=== PATIENT | male | born 1970 | race Caucasian/White ===

== ENCOUNTER 2017-06-15 14:25 | Inpatient (IN) | payer OTHER ==
[2017-06-14 16:06] VITALS: BMI 24.4
[~2017-06-15] VITALS: Ht 172.7 cm; Wt 72.4 kg
[2017-06-15] VITALS (16 sets, daily range): BP systolic 114–139; BP diastolic 53–86; PULSE 90–116; RESP 13–36; Ht 172.7 cm; Wt 72.4 kg
[~2017-06-15 14:25] MED LIST: DESFLURANE 15 MIN ONE; LIDOCAINE 2% (SDV) 5 ML INJ ONE
[2017-06-15] MEDS ORDERED: FENTAnyl 50 MCG/ML VIAL ONE ×2 (15:39→17:38)
[2017-06-15] MEDS ORDERED: ROPIVACAINE 0.5 % 30 ML VIAL ONE (15:39)
[2017-06-15] MEDS ORDERED: MIDAZOLAM 1 MG/ML 2 ML INJ ONE (15:39)
[2017-06-15] MEDS ORDERED: ROCURONIUM 50 MG INJ ONE ×2 (16:01→18:17)
[2017-06-15] MEDS ORDERED: PROPOFOL 20 ML ONE (16:02)
--- NOTE | 2017-06-15 16:11 | HPN ---
Date/Time of Note Date/Time of Note DATE: 06/15/17 TIME: 16:11 Interval H&P Admission Note Pt. seen H&P reviewed: No system changes GILLIAN DE LA GARZA MD Jun 15, 2017 16:11
[2017-06-15] MEDS ORDERED: morphine 10 MG INJ IV PRN (16:30)
[2017-06-15] MEDS ORDERED: OXYCODONE/ACETAMINOPHEN (5/325) TAB PO PRN (16:30)
[2017-06-15] MEDS ORDERED: CEFAZOLIN 1 GM INJ ONE (16:35)
[2017-06-15] MEDS ORDERED: ONDANSETRON 4 MG INJ ONE ×3 (16:36→20:58)
[2017-06-15] MEDS ORDERED: DEXAMETHASONE 4 MG/ML 1 ML INJ ONE (16:36)
[2017-06-15] MEDS ORDERED: LABETALOL HCL 20MG INJ ONE ×2 (17:06→17:36)
[2017-06-15] MEDS ORDERED: hydrALAzine 20 MG INJ ONE ×2 (17:35→19:07)
[2017-06-15] MEDS ORDERED: POLYMYXIN/BACITRACIN 1L IRRIG ONE (19:12)
[2017-06-15] MEDS ORDERED: HYDROmorphONE 2 MG/ML SYG ONE (19:44)
[2017-06-15] MEDS ORDERED: NEOMYC/POLYMYX/BACIT 30 GM OINT ONE (19:57)
[2017-06-15] MEDS ORDERED: SUGAMMADEX SODIUM 200 MG/2 ML VIAL IV ONE (20:08)
--- NOTE | 2017-06-15 20:40 | OPR ---
Date/Time of Note Date/Time of Note DATE: 06/15/17 TIME: 20:32 Operative Report Procedure Date: Jun 15, 2017 Preoperative Diagnosis Right ankle lateral malleolus ankle fracture and syndesmotic disruption Postoperative Diagnosis Right ankle lateral malleolus ankle fracture and syndesmotic disruption Right Ankle Loose body Right Ankle posterolateral tibial plafond osteochondral defect -1cm x 6 mm Operation Performed Right ankle arthroscopy with extensive debridement, removal of loose body and microfracture of tibial plafond Right ankle open reduction internal fixation of distal fibula and syndesmosis Surgeon: GILLIAN DE LA GARZA MD Riffler Tender: BUNNY LONG MD Anesthesia Type: general, other (popliteal) Anesthesiologist: BERNARDA LOPEZ DO Tourniquet Time: 120 min at 250 mm Hg Estimated Blood Loss: 0 - 10 ml's Transfusion Required: no Specimen: none Grafts/Implants Distal fibular locking titanium Arthrex plate with screws and Tightrope Complications: no Pt Condition Post Procedure: stable Disposition: PACU Indications Patient is a 38-year-old gentleman who sustained a patient is a 46-year-old gentleman seen a right ankle fracture dislocation while dancing at a concert. Given the patient's malreduction and displacement patient was indicated for surgery. Operative\Procedure Findings Patient was explained the risks and benefits of surgery and the patient's venetie ira language including not limited to infection, bleeding, injury to blood vessels, nerves, ligaments or tendons. Risks of anesthesia, deep vein thrombosis and need for reduce future surgery. Patient acknowledged these risk by signing the surgical consent form. Procedure Description The patient was met in the preoperative holding area, marked with the correct operative extremity confirmed with both patient and consent. The patient was then brought back in the operative theater, placed supine on operative table, given preoperative antibiotics and preoperative regional block anesthesia. The patient was then placed in the arthroscopic thigh catherine with all bony prominences well padded with a nonsterile tourniquet placed on the operative extremity. The patient was then prepped and draped in the normal sterile fashion. All parties in the room did a timeout and everyone agreed it was the correct patient, and extremity and procedure. Initial distraction was placed across the joint and the superficial peroneal nerve had been marked out prior to distraction, and using extreme caution to avoid any injury to the neurovascular structures, the anteromedial, anterolateral, and posterolateral portals were created in the standard fashion. The arthroscope was brought into the ankle and a 21-point exam was performed showing extensive hemorrhagic scar tissue and synovitis in the ankle with extensive scar tissue in both the medial, lateral, posterior and anterior gutters. Also noted was a 1.05 cm of loose body that was found in the posterior lateral aspect of the ankle, which was removed during the case. A 1 cm x 6 mm osteochondral flap was found over the posterior lateral tibial plafond which was curetted to a firm a stable rim. 3 microfracture holes were made with a microfracture awl to ensure healing of the site. The syndesmosis was extensively debrided. After thorough debridement of the anterior medial, lateral, posterior and anterior gutters. There was extensive posterior malleolar fracture with articular disruption seen and the fracture at this point was reduced with a probe and a displaced articular fracture fragments was reduced and the comminution removed under arthroscopic visualization. After this was done, the ankle was irrigated thoroughly with normal saline and the arthroscopes were removed. At this point, the thigh catherine was removed and the patient was well padded under both extremities and patient was then reprepped and draped, and all gloves and instruments were changed. Attention was then turned initially to the distal fibular fracture. An incision was made over the the fibula. The incision was taken down to the fibula with care taken to avoid injury to the neurovascular structures. The fracture was identified and reduced and fixated with a distal fibular plate and fibula was reduced and held out to show that there was fibular length and alignment and rotation had been re-achieved. Once this was shown, the wound was irrigated thoroughly. A manual external rotation stress xray was performed showing syndesmosis widening. A syndesmotic tightrope was then placed across the joint to reduce the syndesmosis. Talar tilt stress xray was performed showing resolution of tilt. All wounds were thoroughly irrigated and closed with initially 2-0 Vicryl, followed by 3-0 Monocryl followed by 3-0 nylon in a vertical mattress fashion. All wounds were dressed with Xeroform, antibiotic ointment, 4 x 4s, 5 ABDs were placed and the patient was placed in a well-padded short leg splint. Tourniquet had been brought down prior to this and hemostasis had been achieved prior to the wound closure. The wounds were irrigated thoroughly prior to closure as well. All sponge and needle counts were correct. CUSTOMER SERVICE SUPERVISOR NOTE: There was a need for an orthopedic medical surgical tech during this case in order to hold the limb in the proper position and assist with reduction. Without the use of an assistant speech language pathologist the case would have been extensively longer and more complex. GILLIAN DE LA GARZA MD Jun 15, 2017 20:40
[2017-06-15] MEDS ORDERED: ONDANSETRON 4 MG INJ IV STA (21:00)
--- NOTE | 2017-06-15 21:55 | RADRPT ---
PROCEDURE: Intraoperative imaging of the right ankle with fluoroscopy. CLINICAL INDICATION: Right ankle pain. Intraoperative. TECHNIQUE: 22 images of the right ankle were obtained in the operating room with an image intensif ier. No radiologist was in attendance. Fluoroscopy time is 76 seconds. COMPARISON: No prior study is available for comparison. FINDINGS: Surgical instruments are noted overlying the right ankle. Images demonstrate open reduction and internal fixation of the distal tibia and fibula with a latera l plate and multiple screws transfixing the fibula and a single fixation device traversing the dista l fibula and distal tibia. IMPRESSION: 1. Intraoperative imaging of the right ankle. RPTAT: QQ .Be Mckeon MD, Date Time Electronically viewed and signed by .Be Mckeon MD, on 06/15/2017 21:55 .R/
== END 2017-06-15 22:30 | disposition home or self-care (01) | DRG 494 ==
LOC: REC 14:25 → EDSTATUS 16:00
PROVIDERS: ADMIT Orthopaedic Surgery; ATTEND Orthopaedic Surgery
PROC: 0QSJ04Z Reposition Right Fibula with Internal Fixation Device, Open Approach (ICD-10-PCS; principal; 2017-06-15 16:00)
DX: S82.61XA Displaced fracture of lateral malleolus of right fibula, initial encounter for closed fracture (principal); I10 Essential (primary) hypertension; X50.1XXA Overexertion from prolonged static or awkward postures, initial encounter; Y93.41 Activity, dancing; Y92.89 Other specified places as the place of occurrence of the external cause
CPT/HCPCS: J0360; J0690; J1100; J1170; J2250; J2405; J2795; J3010